=== PATIENT | male | born 1970 ===

== ENCOUNTER → 2017-02-10 | Outpatient (CLI) | payer BC ==
[2017-02-10 18:33] LABS: ALT/SGPT 34 U/L (12-78); BLOOD UREA NITROGEN 20 mg/dl (7-18); BUN/CREATININE RATIO 18.5 (10-20); CALCIUM 9.1 mg/dl (8.5-10.1); CARBON DIOXIDE 23 mmol/L (21-32); CHLORIDE 103 mmol/L (98-107); CREATININE 1.06 mg/dl (0.60-1.40); GLUCOSE 87 mg/dl (70-99); POTASSIUM 3.9 mmol/L (3.5-5.1); SODIUM 135 mmol/L (136-145)
[2017-02-10 18:44] LABS: ALKALINE PHOSPHATASE 74 U/L (45-117); AST/SGOT 23 U/L (15-37); THYROID STIMULATING HORMONE 0.019 uIu/ml (0.300-4.500)
== END | disposition home or self-care (01) ==
LOC: C.LABSPEC 18:06
PROVIDERS: ATTEND Family Medicine
DX: E03.9 Hypothyroidism, unspecified (principal)